=== PATIENT | male | born 1980 | race Caucasian/White ===

== ENCOUNTER 2017-07-10 12:54 | Emergency (ER) | payer SELFPAY ==
--- NOTE | 2017-07-10 15:11 | ED Physician Documentation ---
History of Present Illness - Stated complaint Stated Complaint: TOOTH PX - Chief complaint Chief Complaint: Heent - Additonal information Additional information: hx from pt 37 male poor dentition poain to upper right 2nd molar now with facial swellling now has appt to see the dentist no fever pain 05/16 Review of Systems Constitutional: denies: Fever Throat: reports: Dental pain / toothache PD PAST MEDICAL HISTORY - Past Medical History Past Medical History: No - Past Surgical History Past Surgical History: Yes HEENT: Myringotomy (tubes) - Present Medications Home Medications: Ambulatory Orders Medication Instructions Recorded Confirmed Amoxicillin 500 mg PO Q8H #20 capsule 07/10/17 HYDROcod/ACETAM 5/325 [[place] 5/325] 1 ea PO Q6H PRN #10 tablet 07/10/17 Ibuprofen [Motrin] 400 mg PO Q6H PRN #30 tablet 07/10/17 - Allergies Allergies/Adverse Reactions: Allergies Allergy/AdvReac Type Severity Reaction Status Date / Time No Known Drug Allergies Allergy Verified 07/10/17 13:07 - Social History Does the pt smoke?: Yes Smoking Status: Current every day smoker PD ED PE NORMAL - Vitals Vital signs reviewed: Yes - HEENT HEENT: No: Dentition benign (decay multiple spots, upper right 2nd molar TTP, mild facial swelling to cheek region, not submandibular, no trismus) - Cardiac Cardiac: RRR, No murmur - Respiratory Respiratory: No respiratory distress, Clear bilaterally Results - Vitals Vitals: Vital Signs - 24 hr 07/10/17 13:05 Temperature 37.0 C Heart Rate 80 Respiratory 17 Rate Blood Pressure 139/86 H O2 Saturation 98 Oxygen O2 Source Room air Departure - Departure Disposition: 01 Home, Self Care Clinical Impression: Dental abscess Condition: Good Instructions: ED Abscess Dental Prescriptions: Amoxicillin 500 mg PO Q8H #20 capsule HYDROcod/ACETAM 5/325 [[place] 5/325] 1 ea PO Q6H PRN #10 tablet PRN Reason: Severe Pain Ibuprofen [Motrin] 400 mg PO Q6H PRN #30 tablet PRN Reason: Pain Comments: Please get your blood pressure rechecked - it was high today
[2017-07-10] MEDS ORDERED: AMOXICILLIN 250 MG CAPSULE PO ONE (15:15)
[2017-07-10] MEDS: AMOXICILLIN 250 MG CAPSULE PO STA (15:15)
[2017-07-10] MEDS ORDERED: HYDROcod/ACETAM 5/325 MG TABLET ONE (15:15)
[2017-07-10] MEDS: HYDROcod/ACETAM 5/325 MG TABLET PO STA (15:15)
[2017-07-10 15:22] VITALS: BP 125/81
== END 2017-07-10 15:23 | disposition home or self-care (01) ==
LOC: ED 12:54
DX: K04.7 Periapical abscess without sinus (principal); R03.0 Elevated blood-pressure reading, without diagnosis of hypertension; K02.9 Dental caries, unspecified; F17.200 Nicotine dependence, unspecified, uncomplicated
CPT/HCPCS: 99283